=== PATIENT | male | born 1995 | race Two or more races ===

== ENCOUNTER 2019-03-15 04:16 | Emergency (ER) | payer SELFPAY ==
[~2019-03-15] VITALS: Ht 170.2 cm; Wt 68.0 kg
--- NOTE | 2019-03-15 04:20 | Emergency Room Report ---
History of Present Illness General Chief Complaint: Substance Abuse Source: EMS, Law Enforcement Present Illness HPI This is a 23-year-old male with a history of alcohol and drug abuse. He was brought in by EMS for patient. According to EMS, family called 911 because he was being aggressive and agitated. He has been using methamphetamine and drinking alcohol. Unknown amount. He was very agitated per EMS. They gave him a total of 10 mg Versed IM. Is calm down somewhat but he was still not cooperating. Similar symptom in the past per EMS. Unable get any history for this patient because of his condition and intoxication. Allergies: Coded Allergies: No Known Allergies (Unverified , 03/15/19) Patient History Past Medical History: see triage record, old chart reviewed Past Surgical History: none Pertinent Family History: none Social History: Reports: alcohol use, drug use Immunizations: other Reviewed Nursing Documentation: PMH: Agreed; PSxH: Agreed Review of Systems All Other Systems: limited - secondary to condition Physical Exam Vital Signs Date Time Temp Pulse Resp B/P (MAP) Pulse Ox O2 Delivery O2 Flow Rate FiO2 03/15/19 04:12 97.9 128 18 121/70 (87) 100 Room Air vitals with tachycardia Sp02 EP Interpretation: reviewed, normal General Appearance: well appearing, no apparent distress, other - Agitated Head: normocephalic, atraumatic Eyes: bilateral eye PERRL, bilateral eye EOMI ENT: hearing grossly normal, normal pharynx Neck: full range of motion, supple, no meningismus Respiratory: chest non-tender, lungs clear, normal breath sounds Cardiovascular #1: regular rate, rhythm, no murmur Gastrointestinal: normal bowel sounds, non tender, no mass, no organomegaly, no bruit, non-distended Musculoskeletal: back normal, normal range of motion Psychiatric: mood/affect normal Medical Decision Making Diagnostic Impression: Primary Impression: Alcohol intoxication Qualified Codes: F10.920 - Alcohol use, unspecified with intoxication, uncomplicated Additional Impressions: Methamphetamine intoxication Delirium ER Course Patient presents with acute agitation and delirium secondary to combination of methamphetamine and alcohol intoxication. He had to be sedated. Now he is sleeping comfortably. Vitals been stable. Once he is clinically sober, will discharged home. Last Vital Signs Date Time Temp Pulse Resp B/P (MAP) Pulse Ox O2 Delivery O2 Flow Rate FiO2 03/15/19 04:12 97.9 128 18 121/70 87) 100 Room Air Status: improved Disposition: HOME, SELF-CARE Condition: Stable Patient Instructions: Substance Use Disorder Additional Instructions: Abstain from drugs and alcohol. Go to rehab. Follow-up your doctor within 7 days. Return if worse. Brendan Alatorre MD Mar 15, 2019 04:20
--- NOTE | 2019-03-15 04:24 | NUR ---
ED Nurse Note: Pt is verbally aggressive and spitting at staff. Haldol was given. Haldol 10mg IM was given
--- NOTE | 2019-03-15 04:28 | NUR ---
ED Nurse Note: BIBA from home, pt is reported to have taken meth and etoh, pt combative and given 10mg Versed in the field.
[2019-03-15] MEDS ORDERED: Haloperidol 5mg/ml Inj IM ONE (04:30)
[2019-03-15 04:31] VITALS: BP 121/70
--- NOTE | 2019-03-15 05:10 | NUR ---
ED Nurse Note: pt is currently in bed resting with eyes closed. VSS
--- NOTE | 2019-03-15 07:04 | NUR ---
ED Nurse Note: pt woke up, currently sitting in chair. water offered. No acutue distress noted.
--- NOTE | 2019-03-15 07:15 | NUR ---
ED Nurse Note: report given to PIPPA Unger
--- NOTE | 2019-03-15 07:16 | NUR ---
ED Nurse Note: Received patient from Breonna DAS. patient is asleep, breathing unlabored and even.
--- NOTE | 2019-03-15 08:01 | NUR ---
ED Nurse Note: Family at bedside, instructed family that patient is good to be discharged after he wakes up.
[2019-03-15 09:13] VITALS: BP 110/56
--- NOTE | 2019-03-15 09:20 | NUR ---
ED Nurse Note: attempted to wake patient up, patient drank some ice water. patient answers simple question. patient is drowsy. patient's vitals stable.
[2019-03-15 09:45] VITALS: BP 110/56
--- NOTE | 2019-03-15 09:45 | NUR ---
ER DISCHARGE NOTE: Patient is cleared to be discharged per ERMD DR MAC, pt is aox4, on room air, with stable vital signs. pt was given dc and prescription instructions, pt was able to verbalize understanding, pt id band and iv site removed without complications. pt is able to ambulate with steady gait, escorted by his parents. pt took all belongings.
== END 2019-03-15 09:45 | disposition home or self-care (01) ==
LOC: EDBD 04:16 → EMR 04:55
DX: F10.920 Alcohol use, unspecified with intoxication, uncomplicated (principal); F15.129 Other stimulant abuse with intoxication, unspecified
CPT/HCPCS: 36415; 80307; 96372; 99283; G0480; J1630; 80329